=== PATIENT | female | born 1960 | race African-American/Black ===

== ENCOUNTER 2019-05-14 16:57 | Emergency (ER) | payer BC ==
[~2019-05-14] VITALS: Ht 170.2 cm; Wt 105.2 kg
[2019-05-14 17:07] VITALS: Ht 170.2 cm; Wt 105.2 kg
[2019-05-14 19:34] VITALS: BP 132/58
== END 2019-05-14 19:34 | disposition home or self-care (01) ==
LOC: ED 16:57
DX: L25.9 Unspecified contact dermatitis, unspecified cause (principal); Z88.0 Allergy status to penicillin; Z98.890 Other specified postprocedural states
CPT/HCPCS: J0696